=== PATIENT | female | born 1975 | race Caucasian/White ===

== ENCOUNTER 2017-06-11 15:11 | Emergency (ER) | payer MEDICAID ==
[~2017-06-11] VITALS: Ht 157.5 cm; Wt 67.0 kg
[~2017-06-11 15:11] MED LIST: BACT800T5 PO; CLIN150 PO; IBUP600 PO; OXYC-68 PO
[2017-06-11 15:15] VITALS: BP 146/89; PULSE 82; RESP 16; TEMP 98.3; O2SAT 97
[2017-06-11] MEDS ORDERED: PROMSYP3 PO (17:11)
[2017-06-11] MEDS ORDERED: AUGM875T3 PO (17:11)
--- NOTE | 2017-06-11 17:12 | PD ---
HPI Chief Complaint: Cold / Flu Symptoms Time Seen by Provider: 16:59 Travel History International Travel<30 days: No Contact w/Intl Traveler<30days: No Traveled to known affect area: No History of Present Illness HPI 41-year-old female here with cough and sinus pain 2-3 weeks. She reports mucopurulent nasal discharge. Subjective fevers. Symptoms unrelieved by over- the-counter cough and cold medicine. No aggravating factors. Symptoms severity moderate. PFSH Past Medical History Medical History: Denies Significant Hx Renal Failure: Yes (SHORT TERM DIALYSIS 2009) ?: Not LMP: 05/03/17 TUBAL Past Surgical History Other Surgery: Yes (BIALT RIGHT & LEFT LEGS FACIOTOMY ) Social History Alcohol Use: Yes Tobacco Use: Yes (05/21 PPD) Substance Use: No Allergies-Medications (Allergen,Severity, Reaction): Coded Allergies: erythromycin base (Unverified Allergy, Mild, VOMITING, 06/11/17) acetaminophen (Unverified Allergy, Unknown, NIGHTMARES, 06/11/17) propoxyphene (Unverified Allergy, Unknown, [place]IGHTMARES, 06/11/17) Reported Meds & Prescriptions Reported Meds & Active Scripts Active No Active Prescriptions or Reported Medications Review of Systems Except as stated in HPI: all other systems reviewed are Neg General / Constitutional: Positive: Fever Cardiovascular: No: Chest Pain or Discomfort Respiratory: Positive: Cough Gastrointestinal: No: Abdominal Pain Genitourinary: No: Dysuria Physical Exam Narrative GENERAL: Alert and well-appearing 41-year-old female. SKIN: Warm and dry. No rash. HEAD: Normocephalic. EYES: No injection or drainage. Ear/nose/throat: Tenderness to the frontal maxillary sinuses. No pharyngeal erythema. No tonsillar hypertrophy or exudate. NECK: Supple, trachea midline. No edges mass. CARDIOVASCULAR: Regular rate and rhythm RESPIRATORY: Breath sounds equal bilaterally. No accessory muscle use. Data Data Last Documented VS Vital Signs Date Time Temp Pulse Resp B/P (MAP) Pulse Ox O2 Delivery O2 Flow Rate FiO2 06/11/17 15:15 98.3 82 16 146/89 (108) 97 MDM Medical Decision Making Medical Screen Exam Complete: Yes Emergency Medical Condition: Yes Differential Diagnosis Sinusitis, bronchitis, URI, influenza Narrative Course 41-year-old female here with symptoms URI/sinusitis. Patient will be treated with antibiotics. Diagnosis Primary Impression: Sinusitis Qualified Codes: J32.1 - Chronic frontal sinusitis Referrals: Primary Care Physician Scripts Dextromethorphan-Promethazine Liq (Promethazine-Dextromethorphan Liq) 6.25-15 Mg /5 Ml Syrp 10 ML PO Q6HR Y for COUGH, #120 ML Prov: Jesica Skelton 06/11/17 Amoxicillin-Clavulanate (Augmentin) 875-125 Mg Tab 1 TAB PO BID for Infection, #20 TAB 0 Refills Prov: Jesica Skelton 06/11/17 Disposition: 01 DISCHARGE HOME Condition: Stable Jesiac Skelton Jun 11, 2017 17:12
== END 2017-06-11 17:28 | disposition home or self-care (01) ==
LOC: PHED 15:11 → PHEFT 17:28
DX: J32.1 Chronic frontal sinusitis (principal); F17.200 Nicotine dependence, unspecified, uncomplicated
CPT/HCPCS: 99284